=== PATIENT | female | born 1935 | race Caucasian/White ===

== ENCOUNTER 2016-11-10 04:17 | Inpatient (IN) | payer OTHER ==
[2016-11-10] MEDS ORDERED: HYDROGEN PEROXIDE 3% ONE (04:24)
--- NOTE | 2016-11-10 04:41 | DR.GENAD ---
HPI - HPI Comment HPI Comment: PATIENT IS SANIYA FROM [facility], HERE IN [place]BDUL[place] WITH FAMILY. SHE FELL AT HOME TONGHT. HAVE HEADACHE, RIGHT SHOULDER AND RIGHT FOREHEAD PAIN. HIPS , PELVIC AND RIGHT BUTTOKS HURTS WELL. SHE IS DIZZY. TD IS UTD. - Complaint/Symptoms Chief Complaint Doctors Comments: PATIENT DO NOT REMEMBER FALL. SHE REMEMBER ALL EVENTS AFTER THE FALL. HAVE HEADACHE AHD FEEL DIZZY. PATIENT TAKES ELIQUIS BID. Chief Complaint:: FELL AT HOME AND SUSTAIN HEAD TRAUMA, RIGHT SHOULDER PAIN, HIP AND PELVIC PAIN AND SWELLING RIGHT BUTTOCKS. - Nurses notes reviewed Nurses Notes Review: Yes - Source History Provided: Patient, Family Member - Mode of Arrival Mode of Arrival: Stretcher - Timing Came on: Suddenly - Duration Duration: Constant - Severity Severity: Moderate ROS - Review of Systems Constitutional: Weakness. negative: Chills, Diaphoresis, Fever, Fatigue Eyes: No Symptoms Reported. negative: Eye Pain, Discharge ENTM: negative: Ear Pain, Nose Discharge, Nose Congestion, Throat Pain Respiratoy: Non-Productive Cough, Short of Breath. negative: Productive Cough, Wheezing, Hemoptysis Cardiovascular: Syncope. negative: Chest Pain, Edema, Palpitations Gastrointestinal/Abdominal: negative: Abdominal Pain, Diarrhea, Nausea, Vomiting Genitourinary: negative: Dysuria, Hematuria Neurological: Headache, Weakness Musculoskeletal: Muscle Pain, Neck, Shoulder, Pelvis, Hip Integumentary: Other (HEMATOMA RIGHT BUTTOCKS AND RIGHT UPPER PERIORBITAL AREA.) Hematologic/Lymphatic: Easy Bleeding, Easy Bruising Endocrine: No Symptoms Reported All Other Systems: Reviewed and Negative PE - Vital Signs Vitals: Temperature 98.6 F Pulse Rate [Left Brachial] 73 Respiratory Rate 18 Blood Pressure [Left Arm] 114/56 O2 Sat by Pulse Oximetry 97 - General Limitations: No Limitations General Appearance: Alert, In Distress (MILD SOB.) - Head Head Exam: Other (BRUCES AND ABRSIONS ON THEFACE RT PERIORBITAL HEMATOMA.) - Eyes Eye exam: PERRL, EOMI, Periorbital Swelling (RT), Periorbital Tenderness (RT). negative: Scleral Icterus - ENT ENT Exam: Normal Oropharynx, Normal External Ear Exam, TM's Normal Bilaterally External Ear Exam: Normal External Inspection TM/Canal Exam: Bilateral Normal Nose Exam: Normal Nose Exam Mouth Exam: Normal Inspection Throat Exam: Normal Inspection - Neck Neck Exam: Trachea Midline, Tenderness (RT LOWER NECK TENDER.) - Chest Chest Inspection: Symmetric Chest Wall Rise - Respiratory Respiratory Exam: Normal Lung Sounds Bilat, Chest Wall Tenderness (NEAR RT SHOULDER), Respiratory Distress (MILD) Respiratory Exam: Bilateral Rhonchi, Lower Rhonchi - Cardiovascular Cardiovascular Exam: Irregular Rhythm, Normal Heart Sounds - Abdominal Exam Abdominal Exam: Normal Bowel Sounds, Soft. negative: Tenderness - Extremities Extremities Exam: Tenderness (RT SHOULDER AND BILATERAL HIP), Joint Swelling ( RT SHOULDER) - Back Back Exam: Normal Inspection - Neurologic Neurological Exam: Alert, Oriented X3, CN II-XII Intact - Psychiatric Psychiatric Exam: Anxious - Skin Skin Exam: Erythema MDM - Additional Information Additional Information Obtained From: Family - Differential Diagnosis Differential Diagnosis: SCALP CONTUSION, LAC, NECK PAIN, CLOSE HEAD INJURY, HIP PAIN, HEMATOMA, Course - Treatment Treatment: SEE ORDERS. - Consultation Consultation Comments: DISCUSS PATIENT WITH DR. SUÁREZ. HE WILL ADMIT PATIENT. - Education/Counseling Education/Counseling: Patient, Family, Education Educated On: Treatment, Diagnosis ROR - Labs Reviewed Laboratory Results Reviewed?: Yes Result Diagrams: 11/10/16 11:10 11/10/16 05:15 Laboratory: WBC 16.7 X10^3/uL (3.6-10.0) H 11/10/16 05:15 RBC 3.92 X10^6/uL (3.5-5.4) 11/10/16 05:15 Hgb 11.5 g/dL (12.0-16.0) L 11/10/16 05:15 Hct 35.7 % (36.0-47.0) L 11/10/16 05:15 MCV 91.0 fL (80.0-100.0) 11/10/16 05:15 MCH 29.4 pg (27.0-34.0) 11/10/16 05:15 MCHC 32.3 g/dL (33.0-35.0) L 11/10/16 05:15 RDW 15.3 % (11.6-16.5) 11/10/16 05:15 Plt Count 298 X10^3/uL (150.0-450.0) 11/10/16 05:15 MPV 9.1 fL (7.4-11.0) 11/10/16 05:15 Neut % 86.5 % (42.0-75.0) H 11/10/16 05:15 Lymph % 7.8 % (21.0-51.0) L 11/10/16 05:15 Lincoln % 4.2 % (0.0-13.0) 11/10/16 05:15 Eos % 1.1 % (0.9-2.9) 11/10/16 05:15 Baso % 0.4 % (0.2-1.0) 11/10/16 05:15 Neut # 14.4 x10^3/uL (2.2-4.8) H 11/10/16 05:15 Lymph # 1.3 X10^3/uL (1.3-2.9) 11/10/16 05:15 Lincoln # 0.7 x10^3/uL (0.3-0.8) 11/10/16 05:15 Eos # 0.2 x10^3/uL (0.0-0.2) 11/10/16 05:15 Baso # 0.1 X10^3/uL (0.0-0.1) 11/10/16 05:15 Absolute Nucleated RBC 0.0 /100WBC 11/10/16 05:15 Sodium 141 mmol/L (136-145) 11/10/16 05:15 Corrected Sodium 141 mmol/L (136-145) 11/10/16 05:15 Potassium 4.8 mmol/L (3.5-5.1) 11/10/16 05:15 Chloride 107 mmol/L (98-107) 11/10/16 05:15 Carbon Dioxide 29.6 mmol/L (21-32) 11/10/16 05:15 BUN 26 mg/dL (7-18) H 11/10/16 05:15 Creatinine 1.26 mg/dL (0.55-1.02) H 11/10/16 05:15 Est GFR (MDRD) Af Amer 52 (>60) L 11/10/16 05:15 Est GFR (MDRD) Non-Af 43 (>60) L 11/10/16 05:15 Glucose 114 mg/dL (65-99) H 11/10/16 05:15 Calcium 9.6 mg/dL (8.5-10.1) 11/10/16 05:15 Corrected Calcium TNP 11/10/16 05:15 Total Bilirubin 0.80 mg/dL (0.2-1.0) 11/10/16 05:15 AST 18 Units/L (15-37) 11/10/16 05:15 ALT 13 Units/L (12-78) 11/10/16 05:15 Alkaline Phosphatase 70 Units/L (46-116) 11/10/16 05:15 Creatine Kinase 43 Units/L (26-192) 11/10/16 05:15 CK-MB (CK-2) < 1.0 ng/mL (0-4.0) 11/10/16 05:15 CK/CKMB % Calc 2.3 % (<4) 11/10/16 05:15 Troponin I < 0.02 ng/mL (0-1.5) 11/10/16 05:15 Total Protein 7.5 g/dL (6.4-8.2) 11/10/16 05:15 Albumin 3.5 g/dL (3.4-5.0) 11/10/16 05:15 Globulin 4.0 g/dL (2.5-4.5) 11/10/16 05:15 Albumin/Globulin Ratio 0.9 Ratio (1.1-2.1) L 11/10/16 05:15 Blood Type O NEGATIVE 11/10/16 05:15 Antibody Screen Negative 11/10/16 05:15 - XRAY XRAY Findings: REPORT DISCUSS WITH PATIENT. - EKG Rhythm: Afib (EKG NOTED.), Paced Procedures - Laceration/Wound Repair Right Head Wound Length (cm): 3 Wound's Depth, Shape: Linear Wound Explored: clean Anesthesia: 1% Lidocaine Sterile Dressing Applied?: Yes (PRESSURE DRESSING TO SCALP.) Splint Applied?: No Sling Applied?: No Progress: PATIENTS WOUND ON RIGHT SCALP CLOSE WITH STEPHANIE. NUMBER [id number]. - Diagnosis Discharge Problem: Multiple abrasions Scalp laceration Qualifiers: Encounter type: sequela Qualified Code(s): S01.01XS - Laceration without foreign body of scalp, sequela Scalp contusion Qualifiers: Encounter type: initial encounter Qualified Code(s): S00.03XA - Contusion of scalp, initial encounter Traumatic hematoma of forehead Qualifiers: Encounter type: initial encounter Qualified Code(s): S00.83XA - Contusion of other part of head, initial encounter Neck strain Qualifiers: Encounter type: initial encounter Qualified Code(s): S16.1XXA - Strain of muscle, fascia and tendon at neck level, initial encounter Shoulder fracture, right Qualifiers: Encounter type: initial encounter Fracture type: closed Qualified Code(s): S42.91XA - Fracture of right shoulder girdle, part unspecified, initial encounter for closed fracture Pelvic contusion Qualifiers: Encounter type: initial encounter Qualified Code(s): S30.0XXA - Contusion of lower back and pelvis, initial encounter Traumatic hematoma of buttock Qualifiers: Encounter type: initial encounter Qualified Code(s): S30.0XXA - Contusion of lower back and pelvis, initial encounter - Discharge Plan Disposition: ADMITTED INPATIENT Condition: Stable - Follow ups/Referrals - Instructions
--- NOTE | 2016-11-10 05:30 | CT ---
HISTORY: Fall Study: CT brain without contrast Comparison: None available Technique: Multiple axial images of the brain were obtained from the skull base to the vertex without administra tion of IV contrast. Dose reduction techniques including Automated Exposure Control (AEC) and adjust ment of mA and kV were utilized. Findings: A layering subdural hematoma overlying the right frontal lobe is observed. A focal hyperdense collec tion of extra-axial fluid is noted measuring 2.6 x 1.3 cm. Underlying epidural hematoma cannot be en tirely excluded and close interval followup will be needed. No significant effacement of the lateral ventricle on the right can be identified. No evidence for developing herniation can be observed. Diffuse periventricular white matter changes are observed consistent with chronic small vessel ische charly. No alteration in the mid parenchyma to suggest acute large scale cerebral vascular insult can b e identified. Significant soft tissue swelling and hematoma overlying the right orbit is observed w ithout underlying fracture soft tissue swelling overlying the right parietal bone is noted as well. IMPRESSION: Extra-axial fluid collection representing a subdural hematoma overlying the right frontal lobe. A fo fransisco collection of extra-axial fluid is noted with increased attenuation measuring 2.6 x 1.3 cm. This focal region would be concerning for developing epidural hematoma continued close interval followup will be needed. Diffuse periventricular white matter changes consistent with small vessel ischemia is observed. Significant soft tissue swelling overlying the right orbit and right parietal bone. No underlying ania ny abnormality can be identified. The findings were called Dr. Sprague at the time interpretation. Time call 5:24 a.m. Reported By:
--- NOTE | 2016-11-10 05:31 | CT ---
HISTORY: Trauma Study: CT cervical spine without contrast Comparison: None available Technique: Multiple axial images of the cervical spine were obtained from the skull base to the thora cic inlet without administration of IV contrast. Sagittal and coronal reformats were performed and r eviewed. Dose reduction techniques including Automated Exposure Control (AEC) and adjustment of mA an d kV were utilized. Findings: Alignment of the cervical spine is maintained. No evidence for acute cortical disruption or subluxat ion can be seen. The central canal remains free of compromise from bony fragments or significant sof t tissue encroachment. The posterior elements appear unremarkable. The prevertebral soft tissues ar e normal in their appearance. In addition, the surrounding paraspinous soft tissues are unremarkable . Moderate to advanced degenerative disc disease is observed at essentially all levels of the cervic al spine. IMPRESSION: Diffuse degenerative disc disease throughout the cervical spine without acute abnormality to suggest traumatic injury can be identified. Reported By:
--- NOTE | 2016-11-10 05:35 | CT ---
HISTORY: Right hip pain status post fall Study: CT bony pelvis without contrast Comparison: None available Technique: Multiple axial images of the pelvis were obtained from the superior portions of the iliac crest to th e pubic symphysis without the administration of IV contrast. Dose reduction techniques including Aut omated Exposure Control (AEC) and adjustment of mA and kV were utilized. Findings: Bony pelvis appears intact without acute cortical disruption of the sacral ala or right hip. The lef t hip does not demonstrate acute fracture or dislocation. The superior and inferior pubic rami appea r intact as well. Visualized portions of the soft tissues are grossly unremarkable. IMPRESSION: No evidence for acute fracture or dislocation of the right or left hip. The bony pelvis appears inta ct. Reported By:
[2016-11-10 05:39] LABS: BASOPHILS # (AUTO) 0.1 X10^3/uL (0.0-0.1); BASOPHILS % (AUTO) 0.4 % (0.2-1.0); EOSINOPHILS # (AUTO) 0.2 x10^3/uL (0.0-0.2); EOSINOPHILS % (AUTO) 1.1 % (0.9-2.9); HEMATOCRIT 35.7 % (36.0-47.0); HEMOGLOBIN 11.5 g/dL (12.0-16.0); LYMPHOCYTES # (AUTO) 1.3 X10^3/uL (1.3-2.9); LYMPHOCYTES % (AUTO) 7.8 % (21.0-51.0); MEAN CORPUSCULAR HEMOGLOBIN 29.4 pg (27.0-34.0); MEAN CORPUSCULAR HGB CONC 32.3 g/dL (33.0-35.0); MEAN PLATELET VOLUME 9.1 fL (7.4-11.0); MONOCYTES # (AUTO) 0.7 x10^3/uL (0.3-0.8); MONOCYTES % (AUTO) 4.2 % (0.0-13.0); NEUTROPHILS # (AUTO) 14.4 x10^3/uL (2.2-4.8); NEUTROPHILS % (AUTO) 86.5 % (42.0-75.0); PLATELET COUNT 298 X10^3/uL (150.0-450.0); RED BLOOD COUNT 3.92 X10^6/uL (3.5-5.4); RED CELL DISTRIBUTION WIDTH 15.3 % (11.6-16.5); WHITE BLOOD COUNT 16.7 X10^3/uL (3.6-10.0)
--- NOTE | 2016-11-10 05:44 | RAD ---
HISTORY: Shoulder pain Study: Two views right shoulder Comparison: None available Findings: The appearance of the clavicle and AC joint are unremarkable. Subtle cortical irregularity and lucen cy through the subcapital region of the right humeral head is observed for which impaction fracture c annot be excluded. Continued evaluation is recommended. The visualized portions of the scapula are unremarkable. In addition, the visualized portions of the chest appear unremarkable. IMPRESSION: Subtle cortical irregularity and lucency through the humeral head to suggest subcapital impaction fra cture. Continued followup will be needed. Reported By:
--- NOTE | 2016-11-10 05:46 | RAD ---
HISTORY: Chest pain Study: Single-view chest Comparison: None available Findings: The trachea is midline. The cardiac silhouette is enlarged with a tortuous thoracic aorta. A pacing device overlying the left kelly thorax is observed. Prior changes of median sternotomy are noted. Va lvular replacement is noted overlying the cardiac silhouette. The lungs are clear without focal infi ltrate or effusion. The bony thorax is unremarkable. IMPRESSION: 1. No acute cardiopulmonary disease. Reported By:
[2016-11-10 05:50] LABS: BLOOD UREA NITROGEN 26 mg/dL (7-18); CALCIUM 9.6 mg/dL (8.5-10.1); CARBON DIOXIDE 29.6 mmol/L (21-32); CHLORIDE 107 mmol/L (98-107); COR NA(FOR HYPERGLY) 141 mmol/L (136-145); CREATININE 1.26 mg/dL (0.55-1.02); SODIUM 141 mmol/L (136-145); TROPONIN I < 0.02 ng/mL (0-1.5); eGFR BLACK RACES 52 (>60); eGFR NON BLACK RACES 43 (>60)
[2016-11-10] MEDS ORDERED: XYLOCAINE 1 % (PLAIN) ONE (05:50)
[2016-11-10 05:55] LABS: ALANINE AMINOTRANSFERASE 13 Units/L (12-78); ALBUMIN 3.5 g/dL (3.4-5.0); ALKALINE PHOSPHATASE 70 Units/L (46-116); ASPARTATE AMINO TRANSFERASE 18 Units/L (15-37); CKMB % 2.3 % (<4); CREATINE KINASE 43 Units/L (26-192); CREATINE KINASE MB < 1.0 ng/mL (0-4.0); TOTAL PROTEIN 7.5 g/dL (6.4-8.2)
[2016-11-10] MEDS ORDERED: NS 1000 ML 1,000 ML IV ONE (06:26)
[2016-11-10] MEDS ORDERED: NS 1000 ML 1,000 ML ONE (07:38)
[2016-11-10] MEDS: NS 1000 ML 1,000 ML IV SCH ×2 (07:40→17:54)
[2016-11-10 08:44] LABS: BILIRUBIN,URINE NEGATIVE (NEGATIVE); BLOOD/HEMOGLOBIN,URINE NEGATIVE (NEGATIVE); GLUCOSE, URINE NEGATIVE (NEGATIVE); KETONES,URINE NEGATIVE (NEGATIVE); LEUKOCYTE ESTERASE ,URINE NEGATIVE (NEGATIVE); NITRITES,URINE NEGATIVE (NEGATIVE); PROTEIN,URINE 1+ (NEGATIVE); UROBILINOGEN,URINE NORMAL (NORMAL)
--- NOTE | 2016-11-10 08:45 | CT ---
Examination: CT of the head. Clinical history: Re-evaluate hematoma. Technique: Multiple axial images were obtained from the skull base to the vertex. Dose reduction tech niques including automated exposure control (AEC) and adjustment of mA and kV were utilized. Comparison: 11/10/2016 at 5:30 a.m.. Findings: There is a small right subdural hematoma seen in the right frontal region, with a small superimposed elliptical appearance to the hematoma again seen in the right frontal region measuring 2.3 x 1.0 cm i n size. This area has mildly decreased in prominence since the prior examination. Nonspecific periventricular white matter changes are noted, likely due to small vessel ischemic disea se. There is no acute infarct or mass lesion noted. There is prominence of the CSF spaces consistent with age related cerebral atrophy. The ventricles ar e symmetric about the midline, with no midline shift or mass effect noted. The posterior fossa, brain stem and orbital regions are within normal limits. Surgical skin danny are seen associated with the scalp in the right frontoparietal region. There is a stable scalp hematoma seen in the right frontal region. There are stable cortical bony deformities seen in the frontoparietal regions bilaterally. Impression: 1. There is a small right subdural hematoma seen in the right frontal region, with a small superimpos ed elliptical appearance to the hematoma again seen in the right frontal region measuring 2.3 x 1.0 c m in size. This area has mildly decreased in prominence since the prior examination. 2. Age-related cerebral atrophy. 3. Nonspecific periventricular white matter changes are noted, likely due to small vessel ischemic di sease. Reported By:
[2016-11-10 08:48] LABS: APPEARANCE,URINE CLEAR (CLEAR); COLOR,URINE YELLOW (YELLOW)
[2016-11-10 08:51] LABS: BACTERIA,URINE TRACE /HPF (NEGATIVE); RBC,URINE 0-1 /HPF (NEGATIVE); SQUAMOUS EPITHELIAL CELL,UR FEW /HPF (NEGATIVE)
[2016-11-10 11:32] LABS: HEMATOCRIT 30.1 % (36.0-47.0)
[2016-11-10 11:43] VITALS: BMI 22.2
[2016-11-10 11:49] LABS: CKMB % 2.2 % (<4); CREATINE KINASE 46 Units/L (26-192); CREATINE KINASE MB < 1.0 ng/mL (0-4.0); TROPONIN I < 0.02 ng/mL (0-1.5)
[2016-11-10] MEDS ORDERED: PATIENT'S HOME MEDICATION (Potassium Chloride [Potassium Chloride] 1 TAB) PO SCH (12:15)
[2016-11-10] MEDS ORDERED: PriLOSEC PO SCH (13:00)
--- NOTE | 2016-11-10 14:05 | DR.H&P ---
H&P - History & Physical for Day of: H&P Date: 11/10/16 - Chief Complaint Chief Complaint: fall, head injury - Allergies Allergies/Adverse Reactions: Allergies Allergy/AdvReac Type Severity Reaction Status Date / Time codeine Allergy Verified 11/10/16 04:19 - History of Present Illness History of Present Illness: ER ADMISSION PATIENT DO NOT REMEMBER FALL. SHE REMEMBER ALL EVENTS AFTER THE FALL. HAVE HEADACHE AHD FEEL DIZZY. PATIENT TAKES ELIQUIS BID.FAMILY FELL AT HOME AND SUSTAIN HEAD TRAUMA, RIGHT SHOULDER PAIN, HIP AND PELVIC PAIN AND SWELLING RIGHT BUTTOCKS. CT HEAD REVEALED SUBDURAL HEMATOMA, RIGHT SHOULDER FRACTURE. PT ADMITTED TO ICU, HEAD INJURY PRECAUTIONS , REPEAT CT HEAD, BP AND CARDIAC MONITORING - Past Medical History Past Medical History: CHF, COPD - Past Surgical History Surgical History: Angioplasty/Stents, CABG/Valve Surgery, Hysterectomy, Thyroidectomy - Family History Family Medical History: Coronary Artery Disease, Hypertension - Social History Does patient currently use any type of tobacco product: No Have you used tobacco products in the last 12 months: No Type of Tobacco Use: None Does any household member use tobacco: No Alcohol Use: None Drug Use: None - Medications Home Medications: Apixaban [Eliquis] 5 mg PO DAILY 11/10/16 [History Confirmed 11/10/16] Fluoxetine HCl [FLUOXETINE 20 MG *] 20 mg PO DAILY 11/10/16 [History Confirmed 11/10/16] Levothyroxine Sodium 88 mg PO DAILY 11/10/16 [History Confirmed 11/10/16] Metoprolol Tartrate 50 mg PO DAILY 11/10/16 [History Confirmed 11/10/16] Omeprazole 20 mg PO DAILY 11/10/16 [History Confirmed 11/10/16] Potassium Chloride 1 tab PO DAILY 11/10/16 [History Confirmed 11/10/16] Pravastatin Sodium 40 mg PO DAILY 11/10/16 [History Confirmed 11/10/16] - Review of Systems Constitutional: Weakness Eyes: No Symptoms Reported ENT: No Symptoms Reported Respiratory: No Symptoms Reported Cardiovascular: No Symptoms Reported Gastrointestinal: No Symptoms Reported Genitourinary: No Symptoms Reported Musculoskeletal: Shoulder Pain, Neck Pain Skin: Bruising, Ecchymosis Neurological: No Symptoms Reported - Physical Exam Vital Signs: Temperature 98.5 F Pulse Rate [Left Brachial] 74 Respiratory Rate 33 Blood Pressure [Left Arm] 115/54 O2 Sat by Pulse Oximetry 97 Oriented: Normal Eyes: Normal Ear: Normal Nose: Normal Throat: Normal Respiratory: RLL Diminished, LLL Diminished Cardiovascular: Normal : Normal Auscultation: Bowel Sounds: Normal Palpation: Normal Tenderness: Normal Skin: Bruising, Ecchymosis Musculoskeletal: Back:Thoracic, Back:Lumbar Psychiatric: Normal Mood Description: Anxious Speech Pattern: Clear, Appropriate - Assessment/Plan (1) Traumatic hematoma of forehead Qualifiers: Encounter type: initial encounter Qualified Code(s): S00.83XA - Contusion of other part of head, initial encounter Status: Acute Plan: ADMIT, ICU, REPEAT CT HEAD, HOLD ELIQUIS. NEURO CHECKS, BP AND CARDIAC MONITORING (2) Shoulder fracture, right Qualifiers: Encounter type: initial encounter Fracture type: closed Qualified Code(s) : S42.91XA - Fracture of right shoulder girdle, part unspecified, initial encounter for closed fracture Status: Acute Plan: PAIN CONTROL CONSULT ORTHO (3) History of anticoagulant therapy Status: Acute (4) Multiple abrasions Status: Acute (5) Neck strain Qualifiers: Encounter type: initial encounter Qualified Code(s): S16.1XXA - Strain of muscle, fascia and tendon at neck level, initial encounter Status: Acute
[2016-11-10] MEDS: SYNTHROID 88 mcg TAB PO SCH (15:06)
[2016-11-10] MEDS: COLACE CAP 100 MG PO SCH ×2 (15:06→21:27)
[2016-11-10] MEDS: PRAVACHOL PO SCH (15:07)
[2016-11-10] MEDS: PROzac PO SCH (15:08)
[2016-11-10] MEDS: LOPRESSOR TAB 50 MG PO SCH (15:08)
[2016-11-10] MEDS: MICRO K EXTEN CAP 10 MEQ PO SCH (15:08)
[2016-11-10] MEDS: PROTONIX INJ 40 MG VIAL IVP SCH ×2 (15:14→21:27)
[2016-11-10] MEDS ORDERED: NORCO 5/325 MG TAB PO PRN (17:16)
[2016-11-10 17:20] LABS: CKMB % 1.7 % (<4); CREATINE KINASE 58 Units/L (26-192); CREATINE KINASE MB < 1.0 ng/mL (0-4.0); TROPONIN I < 0.02 ng/mL (0-1.5)
--- NOTE | 2016-11-10 17:54 | CT ---
CT Right shoulder without contrast Indication: Fall with right shoulder pain Technique: Helical CT images of the right shoulder were obtained without IV contrast. Reformatted malcolm ges in the coronal and sagittal planes were also generated for review. Comparison: Radiograph from same day Findings: There is a mildly displaced, comminuted fracture of the inferior right scapula, only partia lly visualized. No additional acute fracture or malalignment of the right shoulder is identified. The re are moderate degenerative changes of the glenohumeral joint with associated joint space narrowing, subchondral cyst formation and prominent collar osteophyte formation about the humeral neck, which l ikely accounts for the radiographic abnormality. Moderate degenerative changes of the AC joint are al so present and notable for prominent, inferiorly oriented osteophytes arising from the anterior dista l acromion, which narrow the acromiohumeral interval. Within the limitations of CT technique, no mark s rotator cuff tendon retraction or significant muscle atrophy is identified to suggest high-grade or full-thickness rotator cuff tear. No significant glenohumeral joint effusion or bursal fluid distent ion is seen. Apart from mild dependent atelectasis, the imaged right lung is clear. Partially visualized pacing le ads are noted. No right-sided rib fractures are identified. Impression: 1. Partially imaged, comminuted and mildly displaced fracture of the inferior right scapula. 2. No humeral neck fracture or additional acute osseous abnormality of the right shoulder. 3. Moderate AC and glenohumeral joint DJD, as detailed above. Reported By:
--- NOTE | 2016-11-10 18:22 | CT ---
HISTORY: Follow up subdural hematoma Study: CT head without contrast Comparison: November 10, 2016 8:21 a.m. And 5:30 a.m. Technique: Axial non contrast images with coronal and sagittal reformats. Dose reduction procedures w ere used with MA/kv adjusted for body size. Findings: The ventricles, cortical sulci, and other CSF spaces are enlarged consistent with age-related atrophy . Once again identified is the patient's acute right frontal subdural hematoma which has a maximum wi dth of 8.5 millimeters as compared to 7.2 millimeters on the prior examination. There is also a lenti form extra-axial collection of blood now measuring 2.8 by 1 centimeter as compared to 2.3 by 1 centim eter on the prior examination it contributes slightly more mass effect than on the prior examination and could be subdural or epidural in location. An epidural hematoma cannot be excluded. There is no m idline shift. There is no evidence for recent or remote CVA, mass lesion, or skull fracture. IMPRESSION: Slight increase in the size of the patient's acute right frontoparietal subdural hematoma and a sligh t increase in size of the previously described extra-axial lentiform blood collection measuring 2.8 x 1 centimeter as compared to 2.3 x 1 centimeter on the prior examination. This may represent an unusu al appearance of a subdural hematoma or an epidural hematoma. Mass effect is increased slightly since the prior examination however there is no midline shift as yet. Generalized atrophy likely age related Reported By:
[2016-11-11] MEDS: NS 1000 ML 1,000 ML IV SCH ×3 (02:04→19:45)
[2016-11-11 05:52] LABS: BASOPHILS # (AUTO) 0.1 X10^3/uL (0.0-0.1); BASOPHILS % (AUTO) 1.1 % (0.2-1.0); EOSINOPHILS # (AUTO) 0.3 x10^3/uL (0.0-0.2); EOSINOPHILS % (AUTO) 3.3 % (0.9-2.9); HEMOGLOBIN 8.7 g/dL (12.0-16.0); LYMPHOCYTES % (AUTO) 24.5 % (21.0-51.0); MEAN CORPUSCULAR HEMOGLOBIN 30.8 pg (27.0-34.0); MEAN CORPUSCULAR HGB CONC 33.3 g/dL (33.0-35.0); MEAN CORPUSCULAR VOLUME 92.6 fL (80.0-100.0); MEAN PLATELET VOLUME 9.4 fL (7.4-11.0); MONOCYTES # (AUTO) 1.2 x10^3/uL (0.3-0.8); MONOCYTES % (AUTO) 14.4 % (0.0-13.0); NEUTROPHILS # (AUTO) 4.6 x10^3/uL (2.2-4.8); NEUTROPHILS % (AUTO) 56.7 % (42.0-75.0); PLATELET COUNT 210 X10^3/uL (150.0-450.0); RED BLOOD COUNT 2.81 X10^6/uL (3.5-5.4); RED CELL DISTRIBUTION WIDTH 15.4 % (11.6-16.5); WHITE BLOOD COUNT 8.2 X10^3/uL (3.6-10.0)
--- NOTE | 2016-11-11 06:50 | CT ---
HISTORY: Followup subdural hematoma Study: Noncontrast CT scan the brain Comparison: November 10, 2016 Technique: non contrasted CT images of the brain are reviewed in axial, coronal and sagittal planes. Dose reduction techniques utilized automatic exposure control. Findings: The right frontal subdural hematoma is not significantly changed compared to prior studies. This lydia ures about 0.84 centimeters in thickness and 2.8 centimeters in diameter. There is no shift of midlin e structures. There is global atrophic change present with prominent ventricles and accentuation of c ortical sulci. A scalp hematoma is present in the supraorbital region on the right laterally. No pare nchymal brain hemorrhage is seen. The brainstem and cerebellum unremarkable. Both posterior parietal bones appears hand. This may be on a postsurgical basis. No acute bony abnormality is seen. IMPRESSION: Stable right frontal subdural hematoma. No midline shift or new changes are seen. Global atrophy. Reported By:
[2016-11-11 07:44] LABS: ALANINE AMINOTRANSFERASE 11 Units/L (12-78); ALBUMIN 2.5 g/dL (3.4-5.0); ALKALINE PHOSPHATASE 51 Units/L (46-116); ASPARTATE AMINO TRANSFERASE 14 Units/L (15-37); BLOOD UREA NITROGEN 19 mg/dL (7-18); CALCIUM 8.3 mg/dL (8.5-10.1); CARBON DIOXIDE 24.6 mmol/L (21-32); CHLORIDE 112 mmol/L (98-107); COR CA(FOR HYPOALB) 9.5 mg/dL (8.5-10.1); CREATININE 1.13 mg/dL (0.55-1.02); MAGNESIUM 1.9 mg/dL (1.7-2.9); SODIUM 143 mmol/L (136-145); TOTAL PROTEIN 5.6 g/dL (6.4-8.2); eGFR BLACK RACES 59 (>60); eGFR NON BLACK RACES 49 (>60)
[2016-11-11] MEDS: PROTONIX INJ 40 MG VIAL IVP SCH ×2 (08:23→21:42)
[2016-11-11] MEDS: PROzac PO SCH (08:23)
[2016-11-11] MEDS: MICRO K EXTEN CAP 10 MEQ PO SCH ×2 (08:23→08:26)
[2016-11-11] MEDS: LOPRESSOR TAB 50 MG PO SCH (08:24)
[2016-11-11] MEDS: SYNTHROID 88 mcg TAB PO SCH (08:24)
[2016-11-11] MEDS: MILK OF MAGNESIA PO SCH (08:27)
[2016-11-11] MEDS: PRAVACHOL PO SCH (08:31)
[2016-11-11] MEDS ORDERED: ROBITUSSIN DM PO PRN (12:21)
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
[2016-11-11 12:45] LABS: FREE T4 (FREE THYROXINE) 1.06 ng/dL (0.76-1.46); TSH (3RD GENERATION) 0.237 uIU/mL (0.358-3.74)
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
[2016-11-11] MEDS: COLACE CAP 100 MG PO SCH (21:41)
[2016-11-12] MEDS: NS 1000 ML 1,000 ML IV SCH ×4 (00:34→20:06)
[2016-11-12 07:36] LABS: BASOPHILS # (AUTO) 0.1 X10^3/uL (0.0-0.1); BASOPHILS % (AUTO) 0.7 % (0.2-1.0); EOSINOPHILS # (AUTO) 0.2 x10^3/uL (0.0-0.2); EOSINOPHILS % (AUTO) 2.1 % (0.9-2.9); HEMATOCRIT 24.1 % (36.0-47.0); HEMOGLOBIN 7.9 g/dL (12.0-16.0); LYMPHOCYTES # (AUTO) 1.8 X10^3/uL (1.3-2.9); MEAN CORPUSCULAR HEMOGLOBIN 30.2 pg (27.0-34.0); MEAN CORPUSCULAR HGB CONC 32.9 g/dL (33.0-35.0); MEAN CORPUSCULAR VOLUME 91.9 fL (80.0-100.0); MEAN PLATELET VOLUME 9.2 fL (7.4-11.0); MONOCYTES # (AUTO) 1.5 x10^3/uL (0.3-0.8); MONOCYTES % (AUTO) 13.4 % (0.0-13.0); NEUTROPHILS # (AUTO) 7.6 x10^3/uL (2.2-4.8); NEUTROPHILS % (AUTO) 67.8 % (42.0-75.0); PLATELET COUNT 186 X10^3/uL (150.0-450.0); RED BLOOD COUNT 2.62 X10^6/uL (3.5-5.4); RED CELL DISTRIBUTION WIDTH 15.9 % (11.6-16.5); WHITE BLOOD COUNT 11.3 X10^3/uL (3.6-10.0)
[2016-11-12 07:45] LABS: ALANINE AMINOTRANSFERASE 11 Units/L (12-78); ALBUMIN 2.4 g/dL (3.4-5.0); ALKALINE PHOSPHATASE 50 Units/L (46-116); ASPARTATE AMINO TRANSFERASE 16 Units/L (15-37); BLOOD UREA NITROGEN 16 mg/dL (7-18); CALCIUM 8.4 mg/dL (8.5-10.1); CHLORIDE 114 mmol/L (98-107); COR CA(FOR HYPOALB) 9.7 mg/dL (8.5-10.1); COR NA(FOR HYPERGLY) 144 mmol/L (136-145); CREATININE 1.04 mg/dL (0.55-1.02); HYPOCHROMASIA SLIGHT; PLATELET MORPHOLOGY COMMENT NORMAL (NORMAL); SODIUM 144 mmol/L (136-145); TOTAL PROTEIN 5.7 g/dL (6.4-8.2); eGFR BLACK RACES > 60 (>60); eGFR NON BLACK RACES 54 (>60)
[2016-11-12] MEDS: PROTONIX INJ 40 MG VIAL IVP SCH ×2 (08:32→20:05)
[2016-11-12] MEDS: LOPRESSOR TAB 50 MG PO SCH (08:33)
[2016-11-12] MEDS: PROzac PO SCH (08:33)
[2016-11-12] MEDS: SYNTHROID 88 mcg TAB PO SCH (08:34)
[2016-11-12] MEDS: MICRO K EXTEN CAP 10 MEQ PO SCH (08:34)
[2016-11-12] MEDS: MILK OF MAGNESIA PO SCH (08:34)
[2016-11-12] MEDS: PRAVACHOL PO SCH (08:43)
--- NOTE | 2016-11-12 10:29 | CT ---
CT brain without contrast Indication: followup intracranial hematoma Comparison: 11/11/2016 Technique: Multiple axial images of the brain were obtained from the skull base to the vertex without administra tion of IV contrast. Coronal and sagittal images were also provided. Radiation dose reduction techniques were performed utilizing adjustment for MA/kVP based on patient body size. Findings: There is no stable to minimally decreased size right cerebral convexity extra-axial hemorrhage. There is no mass effect or midline shift. There is no new intracranial hemorrhage. No evidence of lakhani-whi te differentiation loss to suggest acute or subacute ischemia. No change in size of right frontal sca lp/zygomatic arch hematoma. No acute osseous abnormality identified. Sinuses are clear. Impression: 1.Stable to minimally decreased size of right cerebral convexity extra-axial hemorrhage, likely subdu ral in its location. No new intra-axial or extra-axial hemorrhage. No evidence of acute ischemia, vas ogenic edema or midline shift. 2. Stable size of right frontal scalp/zygomatic arch hematoma. Reported By:
[2016-11-12 14:05] LABS: BASOPHILS # (AUTO) 0.1 X10^3/uL (0.0-0.1); BASOPHILS % (AUTO) 0.6 % (0.2-1.0); EOSINOPHILS # (AUTO) 0.2 x10^3/uL (0.0-0.2); HEMATOCRIT 24.9 % (36.0-47.0); HEMOGLOBIN 8.1 g/dL (12.0-16.0); LYMPHOCYTES # (AUTO) 1.8 X10^3/uL (1.3-2.9); MEAN CORPUSCULAR HEMOGLOBIN 30.4 pg (27.0-34.0); MEAN CORPUSCULAR HGB CONC 32.7 g/dL (33.0-35.0); MEAN PLATELET VOLUME 9.1 fL (7.4-11.0); MONOCYTES # (AUTO) 1.3 x10^3/uL (0.3-0.8); MONOCYTES % (AUTO) 11.3 % (0.0-13.0); NEUTROPHILS # (AUTO) 7.9 x10^3/uL (2.2-4.8); NEUTROPHILS % (AUTO) 70.1 % (42.0-75.0); PLATELET COUNT 193 X10^3/uL (150.0-450.0); RED BLOOD COUNT 2.67 X10^6/uL (3.5-5.4); RED CELL DISTRIBUTION WIDTH 16.1 % (11.6-16.5); WHITE BLOOD COUNT 11.2 X10^3/uL (3.6-10.0)
[2016-11-12] MEDS: COLACE CAP 100 MG PO SCH (20:05)
[2016-11-13] MEDS: NS 1000 ML 1,000 ML IV SCH ×2 (01:18→08:55)
[2016-11-13 06:12] LABS: BASOPHILS # (AUTO) 0.1 X10^3/uL (0.0-0.1); BASOPHILS % (AUTO) 0.7 % (0.2-1.0); EOSINOPHILS # (AUTO) 0.3 x10^3/uL (0.0-0.2); EOSINOPHILS % (AUTO) 2.6 % (0.9-2.9); HEMATOCRIT 24.5 % (36.0-47.0); LYMPHOCYTES % (AUTO) 16.4 % (21.0-51.0); MEAN CORPUSCULAR HGB CONC 32.8 g/dL (33.0-35.0); MEAN CORPUSCULAR VOLUME 91.5 fL (80.0-100.0); MEAN PLATELET VOLUME 9.2 fL (7.4-11.0); MONOCYTES # (AUTO) 1.2 x10^3/uL (0.3-0.8); NEUTROPHILS # (AUTO) 8.4 x10^3/uL (2.2-4.8); NEUTROPHILS % (AUTO) 70.3 % (42.0-75.0); PLATELET COUNT 199 X10^3/uL (150.0-450.0); RED BLOOD COUNT 2.67 X10^6/uL (3.5-5.4); RED CELL DISTRIBUTION WIDTH 15.7 % (11.6-16.5)
[2016-11-13 06:34] LABS: ALANINE AMINOTRANSFERASE 23 Units/L (12-78); ALBUMIN 2.4 g/dL (3.4-5.0); ALKALINE PHOSPHATASE 54 Units/L (46-116); ASPARTATE AMINO TRANSFERASE 30 Units/L (15-37); BLOOD UREA NITROGEN 13 mg/dL (7-18); CALCIUM 8.7 mg/dL (8.5-10.1); CARBON DIOXIDE 23.8 mmol/L (21-32); CHLORIDE 112 mmol/L (98-107); CREATININE 0.99 mg/dL (0.55-1.02); SODIUM 142 mmol/L (136-145); eGFR BLACK RACES > 60 (>60); eGFR NON BLACK RACES 57 (>60)
--- NOTE | 2016-11-13 07:33 | RAD ---
HISTORY: Shortness of breath Study: Chest AP portable Comparison: November 10, 2016 Findings: The patient is rotated to the left. There is a pacemaker present on the left. The patient is status p ost median sternotomy and valve replacement. The heart is enlarged. Pulmonary venous congestion is pr esent. Mild interstitial lung changes are present. No acute alveolar infiltrates or pleural effusions are identified. The bony thorax is unremarkable. IMPRESSION: Cardiomegaly with pulmonary venous congestion Mild hyperinflation with interstitial lung changes Reported By:
--- NOTE | 2016-11-13 07:43 | CT ---
HISTORY: Follow up subdural hematoma Study: CT brain without contrast Comparison: November 12, 2016 and multiple priors Technique: Axial non contrast images with coronal and sagittal reformats. Dose reduction procedures w ere used with MA/kv adjusted for the patient's size. Findings: There has been no significant change in the previously described right frontal extra-axial hematoma, likely subdural in location. It contributes mild mass effect to the cerebral cortex however there is no midline shift. The ventricles cortical sulci and other CSF spaces are enlarged consistent with age -related generalized atrophy. The calvarium is intact. IMPRESSION: No significant change from the prior day's examination Reported By:
[2016-11-13] MEDS: PROTONIX INJ 40 MG VIAL IVP SCH (08:53)
[2016-11-13] MEDS: MICRO K EXTEN CAP 10 MEQ PO SCH (08:54)
[2016-11-13] MEDS: LOPRESSOR TAB 50 MG PO SCH (08:54)
[2016-11-13] MEDS: PRAVACHOL PO SCH (08:54)
[2016-11-13] MEDS: PROzac PO SCH (08:54)
[2016-11-13] MEDS: SYNTHROID 88 mcg TAB PO SCH (08:54)
[2016-11-13] MEDS: MILK OF MAGNESIA PO SCH (08:58)
[2016-11-13 15:11] VITALS: BP 119/53
== END 2016-11-13 15:48 | disposition swing bed (61) | DRG 604 ==
LOC: ER 04:17 → ICU 09:10
PROVIDERS: ADMIT Internal Medicine; ATTEND Internal Medicine
PROC: 0HQ0XZZ Repair Scalp Skin, External Approach (ICD-10-PCS; principal; 2016-11-10)
PROC: 2W3AXYZ Immobilization of Right Upper Arm using Other Device (ICD-10-PCS; 2016-11-10)
DX: S01.01XA Laceration without foreign body of scalp, initial encounter (principal); S00.83XA Contusion of other part of head, initial encounter; S42.91XA Fracture of right shoulder girdle, part unspecified, initial encounter for closed fracture; S00.03XA Contusion of scalp, initial encounter; S16.1XXA Strain of muscle, fascia and tendon at neck level, initial encounter; S30.0XXA Contusion of lower back and pelvis, initial encounter; S06.5X0A Traumatic subdural hemorrhage without loss of consciousness, initial encounter; S09.8XXA Other specified injuries of head, initial encounter; R55 Syncope and collapse; M25.551 Pain in right hip; R94.31 Abnormal electrocardiogram [ECG] [EKG]; J44.9 Chronic obstructive pulmonary disease, unspecified; Z79.01 Long term (current) use of anticoagulants; W18.39XA Other fall on same level, initial encounter; C50.912 Malignant neoplasm of unspecified site of left female breast; R26.89 Other abnormalities of gait and mobility; Z95.0 Presence of cardiac pacemaker
CPT/HCPCS: 12002; 36415; 70450; 71010; 72125; 72192; 73030; 73200; 80053; 81001; 82550; 82553; 83735; 84439; 84443; 84484; 85014; 85018; 85025; 85610; 85730; 86850; 86900; 86901; 93005; 93010; 96365; 96367; 99284; 99285; A4222; C9113; J2001

== ENCOUNTER 2016-11-13 15:48 | Inpatient (IN) | payer OTHER ==
[2016-11-13 18:17] VITALS: BMI 22.6
[2016-11-13] MEDS ORDERED: ROBITUSSIN DM PO PRN (23:59)
[2016-11-14] MEDS ORDERED: NORCO 5/325 MG TAB PO PRN (00:01)
[2016-11-14 05:20] LABS: ALANINE AMINOTRANSFERASE 19 Units/L (12-78); ALBUMIN 2.4 g/dL (3.4-5.0); ALKALINE PHOSPHATASE 58 Units/L (46-116); ASPARTATE AMINO TRANSFERASE 21 Units/L (15-37); BLOOD UREA NITROGEN 15 mg/dL (7-18); CALCIUM 8.6 mg/dL (8.5-10.1); CARBON DIOXIDE 24.1 mmol/L (21-32); CHLORIDE 111 mmol/L (98-107); COR CA(FOR HYPOALB) 9.9 mg/dL (8.5-10.1); CREATININE 0.96 mg/dL (0.55-1.02); SODIUM 142 mmol/L (136-145); TOTAL PROTEIN 5.9 g/dL (6.4-8.2); eGFR BLACK RACES > 60 (>60); eGFR NON BLACK RACES 59 (>60)
[2016-11-14 05:39] LABS: BASOPHILS # (AUTO) 0.1 X10^3/uL (0.0-0.1); BASOPHILS % (AUTO) 0.7 % (0.2-1.0); EOSINOPHILS # (AUTO) 0.4 x10^3/uL (0.0-0.2); EOSINOPHILS % (AUTO) 4.4 % (0.9-2.9); HEMATOCRIT 24.1 % (36.0-47.0); HEMOGLOBIN 8.1 g/dL (12.0-16.0); LYMPHOCYTES # (AUTO) 1.7 X10^3/uL (1.3-2.9); LYMPHOCYTES % (AUTO) 17.6 % (21.0-51.0); MEAN CORPUSCULAR HEMOGLOBIN 31.1 pg (27.0-34.0); MEAN CORPUSCULAR HGB CONC 33.4 g/dL (33.0-35.0); MEAN CORPUSCULAR VOLUME 93.2 fL (80.0-100.0); MEAN PLATELET VOLUME 9.6 fL (7.4-11.0); MONOCYTES # (AUTO) 0.9 x10^3/uL (0.3-0.8); MONOCYTES % (AUTO) 9.9 % (0.0-13.0); NEUTROPHILS # (AUTO) 6.4 x10^3/uL (2.2-4.8); NEUTROPHILS % (AUTO) 67.4 % (42.0-75.0); PLATELET COUNT 214 X10^3/uL (150.0-450.0); RED BLOOD COUNT 2.59 X10^6/uL (3.5-5.4); RED CELL DISTRIBUTION WIDTH 15.5 % (11.6-16.5); WHITE BLOOD COUNT 9.5 X10^3/uL (3.6-10.0)
[2016-11-14] MEDS: SYNTHROID 88 mcg TAB PO SCH (06:04)
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
[2016-11-14] MEDS: MICRO K EXTEN CAP 10 MEQ PO SCH (10:13)
[2016-11-14] MEDS: PRAVACHOL PO SCH (10:13)
[2016-11-14] MEDS: LOPRESSOR TAB 50 MG PO SCH (10:13)
[2016-11-14] MEDS: PROTONIX TAB 40 MG PO SCH (10:13)
[2016-11-14] MEDS: PROzac PO SCH (10:13)
[2016-11-14] MEDS: MILK OF MAGNESIA PO SCH (10:14)
[2016-11-14] MEDS: COLACE CAP 100 MG PO SCH (21:47)
[2016-11-15] MEDS: SYNTHROID 88 mcg TAB PO SCH (06:00)
[2016-11-15] MEDS: PROzac PO SCH (09:31)
[2016-11-15] MEDS: PRAVACHOL PO SCH (09:31)
[2016-11-15] MEDS: LOPRESSOR TAB 50 MG PO SCH (09:31)
[2016-11-15] MEDS: MICRO K EXTEN CAP 10 MEQ PO SCH (09:31)
[2016-11-15] MEDS: MILK OF MAGNESIA PO SCH (09:31)
[2016-11-15] MEDS: PROTONIX TAB 40 MG PO SCH (09:31)
[2016-11-15] MEDS: COLACE CAP 100 MG PO SCH (21:43)
[2016-11-16] MEDS: SYNTHROID 88 mcg TAB PO SCH (06:00)
[2016-11-16] MEDS: PROTONIX TAB 40 MG PO SCH (09:41)
[2016-11-16] MEDS: MICRO K EXTEN CAP 10 MEQ PO SCH (09:41)
[2016-11-16] MEDS: PRAVACHOL PO SCH (09:41)
[2016-11-16] MEDS: PROzac PO SCH (09:41)
[2016-11-16] MEDS: LOPRESSOR TAB 50 MG PO SCH (09:41)
[2016-11-16] MEDS: MILK OF MAGNESIA PO SCH (09:42)
[2016-11-16] MEDS: COLACE CAP 100 MG PO SCH (21:20)
[2016-11-17 05:42] LABS: BASOPHILS # (AUTO) 0.1 X10^3/uL (0.0-0.1); BASOPHILS % (AUTO) 0.8 % (0.2-1.0); EOSINOPHILS # (AUTO) 0.4 x10^3/uL (0.0-0.2); EOSINOPHILS % (AUTO) 4.3 % (0.9-2.9); HEMATOCRIT 25.1 % (36.0-47.0); HEMOGLOBIN 8.5 g/dL (12.0-16.0); LYMPHOCYTES # (AUTO) 1.5 X10^3/uL (1.3-2.9); LYMPHOCYTES % (AUTO) 14.5 % (21.0-51.0); MEAN CORPUSCULAR HEMOGLOBIN 31.3 pg (27.0-34.0); MEAN CORPUSCULAR HGB CONC 33.7 g/dL (33.0-35.0); MEAN CORPUSCULAR VOLUME 93.1 fL (80.0-100.0); MEAN PLATELET VOLUME 8.9 fL (7.4-11.0); NEUTROPHILS # (AUTO) 7.1 x10^3/uL (2.2-4.8); NEUTROPHILS % (AUTO) 70.4 % (42.0-75.0); PLATELET COUNT 286 X10^3/uL (150.0-450.0); RED CELL DISTRIBUTION WIDTH 15.7 % (11.6-16.5)
[2016-11-17 05:48] LABS: ALANINE AMINOTRANSFERASE 18 Units/L (12-78); ALBUMIN 2.7 g/dL (3.4-5.0); ALKALINE PHOSPHATASE 61 Units/L (46-116); ASPARTATE AMINO TRANSFERASE 15 Units/L (15-37); BLOOD UREA NITROGEN 20 mg/dL (7-18); CARBON DIOXIDE 31.3 mmol/L (21-32); CHLORIDE 108 mmol/L (98-107); CREATININE 0.97 mg/dL (0.55-1.02); SODIUM 143 mmol/L (136-145); TOTAL PROTEIN 6.5 g/dL (6.4-8.2); eGFR BLACK RACES > 60 (>60); eGFR NON BLACK RACES 59 (>60)
[2016-11-17] MEDS: SYNTHROID 88 mcg TAB PO SCH (06:21)
--- NOTE | 2016-11-17 07:16 | RAD ---
HISTORY: Shortness of breath Study: Chest one view Comparison: November 14, 2016 Findings: The patient is status post median sternotomy and valve replacement. There is a pacemaker present on t he left obscuring a portion of the left mid lung. The heart is enlarged. No congestive heart failure is noted. The lungs are mildly hyperinflated but free of acute alveolar infiltrates. No pleural effus ions are identified. The bony thorax is unremarkable. IMPRESSION: Cardiomegaly without congestive heart failure Lungs hyperinflated but clear, consistent with COPD Reported By:
[2016-11-17] MEDS: LOPRESSOR TAB 50 MG PO SCH (08:53)
[2016-11-17] MEDS: PRAVACHOL PO SCH (08:53)
[2016-11-17] MEDS: MICRO K EXTEN CAP 10 MEQ PO SCH (08:53)
[2016-11-17] MEDS: PROTONIX TAB 40 MG PO SCH (08:53)
[2016-11-17] MEDS: PROzac PO SCH (08:53)
[2016-11-17] MEDS: MILK OF MAGNESIA PO SCH (08:54)
[2016-11-17] MEDS: COLACE CAP 100 MG PO SCH (23:27)
[2016-11-18] MEDS: SYNTHROID 88 mcg TAB PO SCH (06:01)
[2016-11-18] MEDS: MAALOX or MYLANTA PO PRN (06:01)
[2016-11-18] MEDS: PRAVACHOL PO SCH (09:20)
[2016-11-18] MEDS: MILK OF MAGNESIA PO SCH (09:20)
[2016-11-18] MEDS: MICRO K EXTEN CAP 10 MEQ PO SCH (09:20)
[2016-11-18] MEDS: PROTONIX TAB 40 MG PO SCH (09:20)
[2016-11-18] MEDS: PROzac PO SCH (09:20)
[2016-11-18] MEDS: LOPRESSOR TAB 50 MG PO SCH (09:20)
[2016-11-18] MEDS ORDERED: PATIENT'S HOME MEDICATION (Potassium Chloride [Potassium Chloride] 1 TAB) PO SCH (12:30)
[2016-11-18] MEDS ORDERED: ELIQUIS PO SCH (12:30)
[2016-11-18] MEDS ORDERED: LOPRESSOR TAB 50 MG PO SCH (13:00)
[2016-11-18] MEDS ORDERED: PRAVACHOL PO SCH (13:00)
[2016-11-18] MEDS ORDERED: SYNTHROID 88 mcg TAB PO SCH (13:00)
[2016-11-18] MEDS ORDERED: PROzac PO SCH (13:00)
[2016-11-18] MEDS: PriLOSEC PO SCH (15:48)
[2016-11-18] MEDS: COLACE CAP 100 MG PO SCH (21:16)
[2016-11-19] MEDS: SYNTHROID 88 mcg TAB PO SCH (06:02)
[2016-11-19] MEDS: MILK OF MAGNESIA PO SCH ×2 (08:49→08:50)
[2016-11-19] MEDS: MICRO K EXTEN CAP 10 MEQ PO SCH (08:50)
[2016-11-19] MEDS: PRAVACHOL PO SCH (08:51)
[2016-11-19] MEDS: PROzac PO SCH (08:51)
[2016-11-19] MEDS: LOPRESSOR TAB 50 MG PO SCH (08:51)
[2016-11-19] MEDS: PriLOSEC PO SCH (08:51)
[2016-11-19] MEDS: PROTONIX TAB 40 MG PO SCH (08:51)
[2016-11-19] MEDS ORDERED: MICRO K EXTEN CAP 10 MEQ PO SCH (09:00)
[2016-11-19] MEDS: COLACE CAP 100 MG PO SCH (21:39)
[2016-11-19] MEDS: MAALOX or MYLANTA PO PRN (23:54)
[2016-11-20] MEDS: SYNTHROID 88 mcg TAB PO SCH (06:01)
[2016-11-20 06:40] LABS: BASOPHILS # (AUTO) 0.1 X10^3/uL (0.0-0.1); BASOPHILS % (AUTO) 0.8 % (0.2-1.0); EOSINOPHILS # (AUTO) 0.4 x10^3/uL (0.0-0.2); EOSINOPHILS % (AUTO) 4.4 % (0.9-2.9); HEMATOCRIT 27.5 % (36.0-47.0); HEMOGLOBIN 9.1 g/dL (12.0-16.0); LYMPHOCYTES # (AUTO) 1.8 X10^3/uL (1.3-2.9); LYMPHOCYTES % (AUTO) 18.5 % (21.0-51.0); MEAN CORPUSCULAR HEMOGLOBIN 30.7 pg (27.0-34.0); MEAN CORPUSCULAR HGB CONC 33.1 g/dL (33.0-35.0); MEAN CORPUSCULAR VOLUME 92.7 fL (80.0-100.0); MEAN PLATELET VOLUME 8.8 fL (7.4-11.0); NEUTROPHILS # (AUTO) 6.5 x10^3/uL (2.2-4.8); NEUTROPHILS % (AUTO) 66.3 % (42.0-75.0); PLATELET COUNT 366 X10^3/uL (150.0-450.0); RED BLOOD COUNT 2.97 X10^6/uL (3.5-5.4); RED CELL DISTRIBUTION WIDTH 15.9 % (11.6-16.5); WHITE BLOOD COUNT 9.8 X10^3/uL (3.6-10.0)
[2016-11-20 06:49] LABS: ALANINE AMINOTRANSFERASE 14 Units/L (12-78); ALKALINE PHOSPHATASE 68 Units/L (46-116); ASPARTATE AMINO TRANSFERASE 15 Units/L (15-37); BLOOD UREA NITROGEN 20 mg/dL (7-18); CARBON DIOXIDE 28.4 mmol/L (21-32); CHLORIDE 108 mmol/L (98-107); COR CA(FOR HYPOALB) 9.8 mg/dL (8.5-10.1); CREATININE 1.08 mg/dL (0.55-1.02); SODIUM 143 mmol/L (136-145); TOTAL PROTEIN 6.8 g/dL (6.4-8.2); eGFR BLACK RACES > 60 (>60); eGFR NON BLACK RACES 52 (>60)
[2016-11-20] MEDS: PRAVACHOL PO SCH (08:57)
[2016-11-20] MEDS: MICRO K EXTEN CAP 10 MEQ PO SCH (08:57)
[2016-11-20] MEDS: PROzac PO SCH (08:57)
[2016-11-20] MEDS: LOPRESSOR TAB 50 MG PO SCH (08:57)
[2016-11-20] MEDS: MILK OF MAGNESIA PO SCH (08:57)
[2016-11-20] MEDS: PROTONIX TAB 40 MG PO SCH (08:57)
[2016-11-20] MEDS: PriLOSEC PO SCH (08:57)
[2016-11-20] MEDS: COLACE CAP 100 MG PO SCH (21:21)
[2016-11-21] MEDS: SYNTHROID 88 mcg TAB PO SCH (06:02)
[2016-11-21] MEDS: PROzac PO SCH (09:36)
[2016-11-21] MEDS: PRAVACHOL PO SCH (09:36)
[2016-11-21] MEDS: PROTONIX TAB 40 MG PO SCH (09:36)
[2016-11-21] MEDS: MILK OF MAGNESIA PO SCH ×2 (09:36→09:37)
[2016-11-21] MEDS: PriLOSEC PO SCH (09:36)
[2016-11-21] MEDS: LOPRESSOR TAB 50 MG PO SCH (09:36)
[2016-11-21] MEDS: MICRO K EXTEN CAP 10 MEQ PO SCH (09:36)
[2016-11-21] MEDS: COLACE CAP 100 MG PO SCH (20:25)
[2016-11-22] MEDS: SYNTHROID 88 mcg TAB PO SCH (06:13)
[2016-11-22] MEDS: PROTONIX TAB 40 MG PO SCH (08:41)
[2016-11-22] MEDS: PriLOSEC PO SCH (08:42)
[2016-11-22] MEDS: PRAVACHOL PO SCH (08:42)
[2016-11-22] MEDS: LOPRESSOR TAB 50 MG PO SCH (08:42)
[2016-11-22] MEDS: MILK OF MAGNESIA PO SCH (08:42)
[2016-11-22] MEDS: PROzac PO SCH (08:42)
[2016-11-22] MEDS: MICRO K EXTEN CAP 10 MEQ PO SCH (08:43)
[2016-11-22] MEDS: COLACE CAP 100 MG PO SCH (20:22)
[2016-11-23 05:49] LABS: BASOPHILS # (AUTO) 0.1 X10^3/uL (0.0-0.1); BASOPHILS % (AUTO) 1.3 % (0.2-1.0); EOSINOPHILS # (AUTO) 0.4 x10^3/uL (0.0-0.2); EOSINOPHILS % (AUTO) 3.9 % (0.9-2.9); HEMATOCRIT 27.2 % (36.0-47.0); LYMPHOCYTES # (AUTO) 1.8 X10^3/uL (1.3-2.9); LYMPHOCYTES % (AUTO) 18.6 % (21.0-51.0); MEAN CORPUSCULAR HEMOGLOBIN 31.2 pg (27.0-34.0); MEAN CORPUSCULAR HGB CONC 33.2 g/dL (33.0-35.0); MEAN CORPUSCULAR VOLUME 93.8 fL (80.0-100.0); MONOCYTES # (AUTO) 0.9 x10^3/uL (0.3-0.8); MONOCYTES % (AUTO) 9.3 % (0.0-13.0); NEUTROPHILS # (AUTO) 6.4 x10^3/uL (2.2-4.8); NEUTROPHILS % (AUTO) 66.9 % (42.0-75.0); PLATELET COUNT 330 X10^3/uL (150.0-450.0); WHITE BLOOD COUNT 9.6 X10^3/uL (3.6-10.0)
[2016-11-23 05:51] LABS: ALANINE AMINOTRANSFERASE 13 Units/L (12-78); ALBUMIN 2.9 g/dL (3.4-5.0); ALKALINE PHOSPHATASE 67 Units/L (46-116); ASPARTATE AMINO TRANSFERASE 17 Units/L (15-37); BLOOD UREA NITROGEN 23 mg/dL (7-18); CARBON DIOXIDE 28.4 mmol/L (21-32); CHLORIDE 110 mmol/L (98-107); COR CA(FOR HYPOALB) 9.9 mg/dL (8.5-10.1); CREATININE 1.13 mg/dL (0.55-1.02); SODIUM 144 mmol/L (136-145); TOTAL PROTEIN 6.7 g/dL (6.4-8.2); eGFR BLACK RACES 59 (>60); eGFR NON BLACK RACES 49 (>60)
[2016-11-23] MEDS: SYNTHROID 88 mcg TAB PO SCH (06:15)
[2016-11-23] MEDS: LOPRESSOR TAB 50 MG PO SCH (08:01)
[2016-11-23] MEDS: MILK OF MAGNESIA PO SCH (08:01)
[2016-11-23] MEDS: PRAVACHOL PO SCH (08:01)
[2016-11-23] MEDS: MICRO K EXTEN CAP 10 MEQ PO SCH (08:01)
[2016-11-23] MEDS: PROTONIX TAB 40 MG PO SCH (08:02)
[2016-11-23] MEDS: PriLOSEC PO SCH (08:02)
[2016-11-23] MEDS: PROzac PO SCH (08:02)
[2016-11-23] MEDS: COLACE CAP 100 MG PO SCH (20:24)
[2016-11-24] MEDS: SYNTHROID 88 mcg TAB PO SCH (06:00)
[2016-11-24] MEDS: LOPRESSOR TAB 50 MG PO SCH (08:02)
[2016-11-24] MEDS: PriLOSEC PO SCH (08:03)
[2016-11-24] MEDS: PROzac PO SCH (08:03)
[2016-11-24] MEDS: PROTONIX TAB 40 MG PO SCH (08:03)
[2016-11-24] MEDS: PRAVACHOL PO SCH (08:03)
[2016-11-24] MEDS: MICRO K EXTEN CAP 10 MEQ PO SCH (08:03)
[2016-11-24] MEDS: MILK OF MAGNESIA PO SCH (08:03)
[2016-11-24] MEDS: COLACE CAP 100 MG PO SCH (20:19)
[2016-11-25] MEDS: SYNTHROID 88 mcg TAB PO SCH (06:02)
[2016-11-25] MEDS: LOPRESSOR TAB 50 MG PO SCH (09:22)
[2016-11-25] MEDS: PROzac PO SCH (09:22)
[2016-11-25] MEDS: PRAVACHOL PO SCH (09:22)
[2016-11-25] MEDS: PROTONIX TAB 40 MG PO SCH (09:22)
[2016-11-25] MEDS: PriLOSEC PO SCH (09:22)
[2016-11-25] MEDS: MILK OF MAGNESIA PO SCH (09:23)
[2016-11-25] MEDS: MICRO K EXTEN CAP 10 MEQ PO SCH (09:23)
[2016-11-25] MEDS: COLACE CAP 100 MG PO SCH (20:18)
[2016-11-26 05:24] LABS: BASOPHILS # (AUTO) 0.1 X10^3/uL (0.0-0.1); BASOPHILS % (AUTO) 1.3 % (0.2-1.0); EOSINOPHILS # (AUTO) 0.4 x10^3/uL (0.0-0.2); EOSINOPHILS % (AUTO) 4.4 % (0.9-2.9); HEMOGLOBIN 9.3 g/dL (12.0-16.0); LYMPHOCYTES # (AUTO) 1.7 X10^3/uL (1.3-2.9); MEAN CORPUSCULAR HEMOGLOBIN 31.3 pg (27.0-34.0); MEAN CORPUSCULAR HGB CONC 33.4 g/dL (33.0-35.0); MEAN CORPUSCULAR VOLUME 93.7 fL (80.0-100.0); MONOCYTES # (AUTO) 0.9 x10^3/uL (0.3-0.8); MONOCYTES % (AUTO) 10.4 % (0.0-13.0); NEUTROPHILS # (AUTO) 5.2 x10^3/uL (2.2-4.8); NEUTROPHILS % (AUTO) 62.9 % (42.0-75.0); PLATELET COUNT 334 X10^3/uL (150.0-450.0); RED BLOOD COUNT 2.98 X10^6/uL (3.5-5.4); RED CELL DISTRIBUTION WIDTH 16.1 % (11.6-16.5); WHITE BLOOD COUNT 8.3 X10^3/uL (3.6-10.0)
[2016-11-26 05:37] LABS: ALANINE AMINOTRANSFERASE 12 Units/L (12-78); ALKALINE PHOSPHATASE 68 Units/L (46-116); ASPARTATE AMINO TRANSFERASE 16 Units/L (15-37); BLOOD UREA NITROGEN 26 mg/dL (7-18); CALCIUM 9.1 mg/dL (8.5-10.1); CARBON DIOXIDE 27.7 mmol/L (21-32); CHLORIDE 109 mmol/L (98-107); COR CA(FOR HYPOALB) 9.9 mg/dL (8.5-10.1); CREATININE 1.09 mg/dL (0.55-1.02); SODIUM 143 mmol/L (136-145); TOTAL PROTEIN 6.7 g/dL (6.4-8.2); eGFR BLACK RACES > 60 (>60); eGFR NON BLACK RACES 51 (>60)
[2016-11-26] MEDS: SYNTHROID 88 mcg TAB PO SCH (07:16)
[2016-11-26] MEDS: PROzac PO SCH (08:00)
[2016-11-26] MEDS: PriLOSEC PO SCH (08:00)
[2016-11-26] MEDS: PRAVACHOL PO SCH (08:00)
[2016-11-26] MEDS: PROTONIX TAB 40 MG PO SCH (08:00)
[2016-11-26] MEDS: LOPRESSOR TAB 50 MG PO SCH (08:00)
[2016-11-26] MEDS: MILK OF MAGNESIA PO SCH (08:34)
[2016-11-26] MEDS: MICRO K EXTEN CAP 10 MEQ PO SCH (08:34)
[2016-11-26] MEDS: COLACE CAP 100 MG PO SCH (21:13)
[2016-11-27] MEDS: SYNTHROID 88 mcg TAB PO SCH (06:05)
[2016-11-27] MEDS: MICRO K EXTEN CAP 10 MEQ PO SCH ×2 (08:28→08:29)
[2016-11-27] MEDS: LOPRESSOR TAB 50 MG PO SCH (08:28)
[2016-11-27] MEDS: MILK OF MAGNESIA PO SCH (08:29)
[2016-11-27] MEDS: PRAVACHOL PO SCH (08:29)
[2016-11-27] MEDS: PROTONIX TAB 40 MG PO SCH (08:30)
[2016-11-27] MEDS: PROzac PO SCH (08:30)
[2016-11-27] MEDS: PriLOSEC PO SCH (08:30)
[2016-11-27 12:45] VITALS: BP 114/54
== END 2016-11-27 12:45 | disposition home or self-care (01) | DRG 949 ==
LOC: ICU 15:48 → MED/SURG 17:05
PROVIDERS: ADMIT Internal Medicine; ATTEND Internal Medicine
DX: Z51.89 Encounter for other specified aftercare (principal); S01.01XA Laceration without foreign body of scalp, initial encounter; S00.83XA Contusion of other part of head, initial encounter; S42.91XA Fracture of right shoulder girdle, part unspecified, initial encounter for closed fracture; S00.03XA Contusion of scalp, initial encounter; S16.1XXA Strain of muscle, fascia and tendon at neck level, initial encounter; S30.0XXA Contusion of lower back and pelvis, initial encounter; S09.8XXA Other specified injuries of head, initial encounter; Z95.0 Presence of cardiac pacemaker; R26.89 Other abnormalities of gait and mobility; J44.9 Chronic obstructive pulmonary disease, unspecified; Z79.01 Long term (current) use of anticoagulants
CPT/HCPCS: 36415; 71010; 80053; 85025; 97535; A4222